=== PATIENT | female | born 2000 | race Hispanic/Latino ===

== ENCOUNTER 2023-11-16 15:42 | Emergency (ER) | payer SELFPAY ==
[2023-11-16] MEDS ORDERED: ONDANSETRON 4 MG/2 ML VIAL ONE (16:10)
[2023-11-16] MEDS ORDERED: KETOROLAC 30 MG/ML INJ ONE (16:10)
[2023-11-16] MEDS ORDERED: NA CHLORIDE 0.9% 1,000 ML ONE (16:11)
[2023-11-16] MEDS ORDERED: FAMOTIDINE 20 MG/2 ML VIAL IV ONE (16:11)
--- NOTE | 2023-11-16 16:27 | RAD REPORT ---
EXAM DESCRIPTION: US - Abdomen Exam Limited - 11/16/2023 4:17 pm CLINICAL HISTORY: ABD PAIN COMPARISON: No comparisons FINDINGS: The gallbladder demonstrates possible sludge versus small stones. No pericholecystic fluid or gallbladder wall thickening. The common bile duct is enlarged measuring 12 mm. The liver demonstrates no findings of intrahepatic biliary dilatation. IMPRESSION: Possible small amount of gall sludge or stones. Dilated common bile duct. MRCP would be recommended for further evaluation.
[2023-11-16 16:40] LABS: Absolute Lymphocytes (CBC) 1.3 K/uL (0.7-4.9); Absolute Monocytes 0.6 K/uL (0.1-1.3); Absolute Neutrophil 7.7 K/uL (1.8-8.0); Basophils % 0.5 % (0-1.3); Eosinophils % 0.1 % (0-4.4); Hematocrit 39.6 % (36.0-45.0); Hemoglobin 13.2 g/dL (12.0-15.0); Lymphocytes % 13.6 % (15.3-44.8); MCH 30.6 pg (27.0-35.0); MCHC 33.4 g/dL (32.0-36.0); MCV 91.6 fL (80-100); MPV 8.5 fL (7.6-11.3); Monocytes % 6.5 % (3.3-12.3); Neutrophils % 79.3 % (41.7-73.7); Platelets 400 thou/uL (152-406); RBC Red Blood Cell Count 4.33 M/uL (3.86-4.86); Red Cell Distribution Width 13.3 % (12.1-15.2)
[2023-11-16 16:42] LABS: Specific Gravity 1.029 (1.005-1.030)
[2023-11-16 16:43] LABS: Specific Gravity 1.029 (1.005-1.030); Sqamous Epithelial <5 /HPF (None Seen); Urine Bacteria None Seen /HPF (<20); Urine Bilirubin NEGATIVE (Negative); Urine Blood Negative (Negative); Urine Clarity Clear (Clear); Urine Color Yellow (Yellow); Urine Crystals Unidentified Few /HPF (None Seen); Urine Culture Reflex Order NOT NEEDED; Urine Glucose NEGATIVE (Negative); Urine Ketones 3+ (Negative); Urine Microscopic Reflex YN ORDER UMIC; Urine Mucus Slight /HPF (None Seen); Urine Nitrite NEGATIVE (Negative); Urine Protein TRACE (Negative); Urine RBC <5 /HPF (None Seen); Urine Urobilinogen 1+ (Normal); Urine WBC <5 /HPF (<5)
[2023-11-16 16:56] LABS: Albumin 3.8 g/dL (3.4-5.0); Albumin/Globulin Ratio 0.8 (1.1-1.8); Anion Gap 10.5 mEq/L (5.0-15.0); Bilirubin Total 1.8 mg/dL (0.2-1.0); Globulin 4.6 g/dL (2.3-3.5); Potassium 3.5 mEq/L (3.5-5.1); Protein, Total 8.4 g/dL (6.4-8.2)
--- NOTE | 2023-11-16 17:20 | ER ---
Nurse's Notes [facility] Name: Cat Jaramillo Age: 23 yrs Sex: Female : 2000 Arrival Date: 11/16/2023 Time: 15:42 Bed 14 Private MD: Diagnosis: Choledocholithiasis;Abnormal results of liver function studies Presentation: 11/15 15:58 Chief complaint: Patient states: Abdominal pain for 9 months. +N/V. Coronavirus screen: ll1 Client denies travel out of the [place] in the last 14 days. At this time, the client does not indicate any symptoms associated with coronavirus-19. Ebola Screen: Patient denies travel to an Ebola-affected area in the 21 days before illness onset. Initial Sepsis Screen: Does the patient meet any 2 criteria? No. Patient's initial sepsis screen is negative. Does the patient have a suspected source of infection? No. Patient's initial sepsis screen is negative. Risk Assessment: Do you want to hurt yourself or someone else? Patient reports no desire to harm self or others. Onset of symptoms was February 02, 2023. 15:58 Method Of Arrival: Ambulatory 1 15:58 Acuity: DOREEN 3 ll1 Triage Assessment: 16:00 General: Appears in no apparent distress. Behavior is calm, cooperative, appropriate bp for age. Pain: Complains of pain in right upper quadrant. EENT: No deficits noted. Neuro: No deficits noted. Cardiovascular: No deficits noted. Respiratory: No deficits noted. GI: Reports upper abdominal pain, nausea. : No signs and/or symptoms were reported regarding the genitourinary system. Derm: No deficits noted. Musculoskeletal: No deficits noted. 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 - Infectious Disease History:: Denies. - Social history:: Smoking status: Patient denies any tobacco usage or history of. Screenin:00 [facility] ED Fall Risk Assessment (Adult) History of falling in the last 3 months, bp including since admission No falls in past 3 months (0 pts). Abuse screen: Denies threats or abuse. Denies injuries from another. Nutritional screening: No deficits noted. Tuberculosis screening: No symptoms or risk factors identified. Assessment: 16:00 General: SEE TRIAGE NOTE. bp 18:00 Reassessment: TRANSFER INITIATED. bp 20:29 GI: Bowel sounds present X 4 quads. Abd is soft Abdomen is tender to palpation X 4 cp4 quads. Vital Signs: 15:58 BP 125 / 75; Pulse 69; Resp 17; Temp 97.8; Pulse Ox 100% ; Weight 82.55 kg; Height 5 ll1 ft. 4 in. ; Pain 8/10; 17:00 BP 113 / 75; Pulse 51; Resp 15; Pulse Ox 100% ; bp 18:00 BP 110 / 70; Pulse 54; Resp 15; Pulse Ox 100% ; bp 19:00 BP 91 / 81; Pulse 58; Resp 18; Pulse Ox 100% ; cp4 20:00 BP 108 / 77; Pulse 52; Resp 18; Pulse Ox 100% ; cp4 15:58 Body Mass Index 31.24 (82.55 kg, 162.56 cm) ll1 15:58 Pain Scale: Adult ll1 ED Course: 15:45 Patient arrived in ED. mr 15:45 Lesia Chen FNP-C [facility]. kb 15:45 Jesus Alberto Saldaña MD is Attending Physician. kb 15:59 Triage completed. ll1 15:59 Arm band placed on Patient placed in an exam room, on a stretcher. ll1 16:00 Patient has correct armband on for positive identification. bp 16:00 Inserted saline lock: 20 gauge in right forearm, using aseptic technique. Blood bp collected. 16:04 Sony Salgado, RN is Primary Nurse. bp 16:19 Abdomen Limited US In Process Unspecified. EDMS 17:16 attempted to initiate a transfer with the [facility] Transfer [place]/ [facility] for three eb minutes then hung up on/ provider notified. 17:21 initiated a transfer with Diana from the [facility] transfer center. eb 17:25 the surgeon nutrition coordinator for [facility] is finishing a case and will call back in 30 minutes. eb 18:21 Diana from the [facility] transfer center called the surgeon is still in surgery and will have eb to call us back in 20 min. 19:[address] Levine to [facility] Rm [id number], Report # [phone]. rv1 20:29 No provider procedures requiring assistance completed. Patient transferred, IV remains cp4 in place. 20:30 Provided Education on: gallstones. cp4 Administered Medications: 16:15 Drug: NS 0.9% IV 1000 ml IV at 1 bolus Per protocol; 1000 mL bolus Route: IV; Rate: 1 bp bolus; Site: right forearm; 16:15 Drug: Famotidine IVP 20 mg IVP once; dilute with 10 mL 0.9% NaCl; give over 2 minutes bp Route: IVP; Site: right forearm; 16:15 Drug: TORadol - Ketorolac IVP 15 mg IVP once Route: IVP; Site: right forearm; bp 16:15 Drug: Ondansetron IVP 4 mg IVP once; over 2 minutes Route: IVP; Site: right forearm; bp 18:43 Drug: fentaNYL (PF) IVP 25 mcg IVP once Route: IVP; Site: right forearm; bp Medication: 16:00 VIS not applicable for this client. bp Outcome: 17:19 ER care complete, transfer ordered by MD. dan 20:29 Transferred by ground EMS to [facility], Transfer form cp4 completed. X-rays sent w/ patient. 20:29 Condition: stable 20:29 Instructed on the need for transfer, 20:30 Patient left the ED. cp4 Signatures: Dispatcher [employer] EDMS Lesia Chen, AGUSTO-C GLOVE FINISHER-CkDanita Serrato, Reg Reg Sony Macario, RN RN Marisa Williamson Lynsay, RN RN 1 Mildred Singleton 1 Shereen Mccarthy cp4
--- NOTE | 2023-11-16 17:20 | EDPHYS ---
Physician Documentation [facility] Name: Cat Jaramillo Age: 23 yrs Sex: Female : 2000 Arrival Date: 11/16/2023 Time: 15:42 Bed 14 Private MD: ED Physician Jesus Alberto Saldaña HPI: 11/15 15:53 This 23 yrs old Female presents to ER via Unassigned with complaints of kb Abdominal Pain. 15:53 Pt is a 23 year old female who presents for upper abdominal pain that radiates to back kb that started 3 days ago. Reports nausea, vomiting. Denies diarrhea, fever. States she has had "gallbladder attacks" since February and was supposed to see a surgeon, but has had issues with insurance. . 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 - Infectious Disease History:: Denies. - Social history:: Smoking status: Patient denies any tobacco usage or history of. ROS: 15:53 Constitutional: As per HPI kb Exam: 15:56 Constitutional: This is a well developed, well nourished patient who is awake, alert, kb and in no acute distress. Head/Face: Normocephalic, atraumatic. ENT: Moist Mucous membranes Chest/axilla: Normal chest wall appearance and motion. Cardiovascular: Regular rate Respiratory: Respirations even and unlabored. No increased work of breathing. Talking in full sentences Skin: Warm, dry with normal turgor. Normal color. MS/ Extremity: Pulses equal, no cyanosis. Neurovascular intact. Full, normal range of motion. Neuro: Awake and alert, GCS 15, oriented to person, place, time, and situation. Moves all extremities. Normal gait. 15:56 Abdomen/GI: Inspection: abdomen appears normal, Bowel sounds: normal, Palpation: soft, in all quadrants, moderate abdominal tenderness, in the right upper quadrant, Vital Signs: 15:58 BP 125 / 75; Pulse 69; Resp 17; Temp 97.8; Pulse Ox 100% ; Weight 82.55 kg; Height 5 ll1 ft. 4 in. ; Pain 8/10; 17:00 BP 113 / 75; Pulse 51; Resp 15; Pulse Ox 100% ; bp 18:00 BP 110 / 70; Pulse 54; Resp 15; Pulse Ox 100% ; bp 19:00 BP 91 / 81; Pulse 58; Resp 18; Pulse Ox 100% ; cp4 20:00 BP 108 / 77; Pulse 52; Resp 18; Pulse Ox 100% ; cp4 15:58 Body Mass Index 31.24 (82.55 kg, 162.56 cm) ll1 15:58 Pain Scale: Adult ll1 MDM: 15:45 Patient medically screened. kb 15:56 Differential diagnosis: cholecystitis, Cholelithiasis, gastritis, gastroesophageal kb reflux disease, non-specific abd pain, pancreatitis. Data reviewed: vital signs, nurses notes. 17:14 Management of patient was discussed with the following: Lawn Specialist: Dr Naheed dan recommends transfer for MRCP, no GI available. Historians other than the Patient: Parent: mother. 17:18 Consideration of Admission/Observation admission considered, pt will be transferred due kb to lack of GI coverage. Counseling: I had a detailed discussion with the patient and/or guardian regarding the historical points, exam findings, and any diagnostic results supporting the discharge/admit diagnosis, lab results, radiology results, the need to transfer to another facility, [facility] does not immediately have the required specialist. 19:24 Management of patient was discussed with the following: Dr Levine, [facility] accepts pt for transfer. 19:25 ED course: [facility] reported they are unable to do MRCPs. Pt kb transferred to [facility]. 11/15 15:55 Order name: CBC with Diff; Complete Time: 16:43 kb 11/15 15:55 Order name: CMP; Complete Time: 16:59 kb 11/15 15:55 Order name: Lipase; Complete Time: 16:59 kb 11/15 15:55 Order name: Test, Urine; Complete Time: 16:42 kb 11/15 15:55 Order name: Urinalysis w/ reflexes; Complete Time: 16:43 kb 11/15 15:55 Order name: Abdomen Limited US; Complete Time: 16:34 kb 11/15 15:55 Order name: IV Saline Lock; Complete Time: 16:42 kb 11/15 15:55 Order name: Labs collected and sent; Complete Time: 16:42 kb Administered Medications: 16:15 Drug: NS 0.9% IV 1000 ml IV at 1 bolus Per protocol; 1000 mL bolus Route: IV; Rate: 1 bp bolus; Site: right forearm; 16:15 Drug: Famotidine IVP 20 mg IVP once; dilute with 10 mL 0.9% NaCl; give over 2 minutes bp Route: IVP; Site: right forearm; 16:15 Drug: TORadol - Ketorolac IVP 15 mg IVP once Route: IVP; Site: right forearm; bp 16:15 Drug: Ondansetron IVP 4 mg IVP once; over 2 minutes Route: IVP; Site: right forearm; bp 18:43 Drug: fentaNYL (PF) IVP 25 mcg IVP once Route: IVP; Site: right forearm; bp Disposition Summary: 11/16/23 17:19 Transfer Ordered Notes: Reason: Higher level of care kb Condition: Stable kb Problem: new kb Symptoms: are unchanged kb [facility] kb Accepting Physician: Dr Levine(11/16/23 20:30) cp4 Diagnosis - Choledocholithiasis kb - Abnormal results of liver function studies kb Forms: - Medication Reconciliation Form kb - SBAR form kb Signatures: Dispatcher [employer] EDLesia Kennedy, MARIELOSC PHYSICAL GEOGRAPHER-Sony Nicole RN Tash Bernard RN RN llSehreen Palacios cp4 Corrections: (The following items were deleted from the chart) 19:25 17:19 Dr dan kb 19:25 17:19 Other [facility] kb kb 20:30 19:25 Dr Abner dan cp4
[2023-11-16] MEDS ORDERED: FENTANYL CITR 100 MCG/2 ML ONE (18:39)
[2023-11-16 21:01] VITALS: BP 108/77; TEMP 97.8; O2SAT 100
== END 2023-11-16 20:30 | disposition short-term general hospital (02) ==
LOC: ER 15:42
DX: K80.50 Calculus of bile duct without cholangitis or cholecystitis without obstruction (principal); R94.5 Abnormal results of liver function studies
CPT/HCPCS: 36415; 76705; 80053; 81001; 81025; 83690; 85025; 96374; 96375; 99285; J2405; J3010; J7030